=== PATIENT | male | born 1950 | race Caucasian/White ===

== ENCOUNTER 2022-11-01 07:05 | Day surgery (SDC) | payer MEDICARE, MEDICAID ==
[~2022-11-01] VITALS: Ht 172.7 cm; Wt 52.9 kg
[2022-11-01] MEDS ORDERED: LIDOcaine 1%/PF 5ML 10 MG/ML VIAL SQ ONE (07:20)
[2022-11-01 07:30] VITALS: BP 128/79
[2022-11-01] MEDS ORDERED: FLUC200T93 PO (07:53)
[2022-11-01] MEDS ORDERED: LISI1TAB51 PO (07:53)
[2022-11-01] MEDS ORDERED: GABA250S6 PO (07:53)
[2022-11-01] MEDS ORDERED: HYDR1LIQ5 PO (07:53)
[2022-11-01] MEDS ORDERED: ACET-75 (07:53)
== END 2022-11-01 08:50 | disposition home or self-care (01) ==
LOC: SSTAY O 07:05
PROVIDERS: ATTEND Radiology Vascular & Interventional Radiology
DX: R18.8 Other ascites (principal); Z53.8 Procedure and treatment not carried out for other reasons; R14.0 Abdominal distension (gaseous); I10 Essential (primary) hypertension; E43 Unspecified severe protein-calorie malnutrition; Z79.899 Other long term (current) drug therapy; Z87.01 Personal history of pneumonia (recurrent); Z85.828 Personal history of other malignant neoplasm of skin
CPT/HCPCS: 76705